=== PATIENT | male | born 1955 | race Caucasian/White ===

== ENCOUNTER 2018-05-23 06:48 | Day surgery (SDC) | payer BC ==
[2018-05-23] MEDS ORDERED: NA CHLORIDE 0.9% 500 ML ONE (07:36)
[2018-05-23] MEDS ORDERED: LIDOCAINE 2% MPF 5 ML VIAL ONE (07:41)
[2018-05-23] MEDS ORDERED: BUPIVACAINE 0.25% PF 10 ML VIAL ONE (07:41)
[2018-05-23] MEDS ORDERED: TETRACAINE HCL 0.5% 2ML OPTH ONE (07:41)
[2018-05-23] MEDS ORDERED: LIDOCAINE HCL/PF 3.5% OPTH GEL ONE (07:44)
[2018-05-23] MEDS: CYCLOPENTOLATE 1% OPTH 2 ML ONE ×3 (08:05→08:15)
[2018-05-23] MEDS: PHENYLEPHRINE 10% OPTH 5ML ONE ×2 (08:05→08:10)
[2018-05-23] MEDS ORDERED: DUOVISC 1 KIT OPTH ONE (08:36)
[2018-05-23] MEDS ORDERED: NS 0.9% VIAL 10 ML ONE (08:36)
[2018-05-23] MEDS ORDERED: BALANCED SALT IRRIG PLAIN 500 ML BTL IRR ONE (08:36)
[2018-05-23] MEDS ORDERED: EPINEPHRINE/PF 1 MG/ML AMP ONE (08:36)
[2018-05-23] MEDS ORDERED: MOXIFLOXACIN HCL 10 DROPS/ML **OR USE OPTH ONE (08:37)
[2018-05-23] MEDS ORDERED: MIDAZOLAM HCL 2 MG/2 ML INJ ONE (09:15)
[2018-05-23] MEDS ORDERED: LIDOCAINE 1% MPF 2 ML AMPULE ONE (09:18)
--- NOTE | 2018-05-23 10:08 | P.BOP ---
Preoperative diagnosis: Nuclear sclerotic and cortical cataract OS Postoperative diagnosis: Same Primary procedure: Phacoemulsification with IOL OS Estimated blood loss: None Anesthesia: Local (Topical with anesthesia for cataract surgery) Complications: None Implants: ZCB00 +17.0 Transferred to: Other (Day surgery) Condition: Good
[2018-05-23 10:14] VITALS: BP 144/66; TEMP 98.1; O2SAT 98
--- NOTE | 2018-05-23 21:26 | OP ---
Surgeon: Yenifer Conner MD Anesthesiologist: Steve Wetzel CRNA, and Chilo Knowles M.D. Preoperative Diagnosis: Nuclear sclerotic and cortical cataract, OS (left eye). Operation Performed: Phacoemulsification with intraocular lens implant, left eye. Anesthesia: Per cataract surgery. Complications: None. Description Of Procedure: In the operating room the patient was prepped and draped in the usual ster ile fashion for ophthalmic surgery. A lid speculum was placed in the left eye. Two paracentesis sit es were made superiorly and inferiorly in the limbal cornea. Viscoat was placed in the anterior ivan pasquale and a crescent blade was used to make a corneal groove and tunnel, and a keratome was used to ent er the anterior chamber. Provisc was placed in the anterior chamber and a 360 degree capsulotomy was performed with a cystitome. The lens was hydrodissected with BSS and rotated freely. The lens was removed with a stop and chop technique. A 4.41 phaco CDE was used to remove the lens. Residual sin ex was removed with the irrigation and aspiration. Provisc was placed in the capsular bag. A ZCB00 + 17.0 lens was placed in the capsular bag without complications. Irrigation and aspiration was used to remove residual viscoelastic. The paracentesis sites were hydrated with BSS. The wound and para centesis sites were inspected and found to be watertight. Vigamox 0.07 cc was placed intracamerally at the end of the procedure. The eye was irrigated with balanced salt solution. The eye was patched with a soft cotton patch and [place] metal shield. The patient was returned to day surgery in good condition. Comments: Akten was placed in the eye in Day Surgery and irrigated out of the eye with BSS in the OR . Preservative-free 1% lidocaine was placed in the anterior chamber prior to Viscoat. Discharge Instructions: Mr. Santiago is discharged to home in good condition and is to follow up with Dr. Conner in the morning. NADIA/JERMAINE Voice ID: [id number] Report ID: [id number]
== END 2018-05-23 10:37 | disposition home or self-care (01) ==
LOC: OR 06:48
PROVIDERS: ATTEND Ophthalmology Retina Specialist
PROC: 08RK3JZ Replacement of Left Lens with Synthetic Substitute, Percutaneous Approach (ICD-10-PCS; principal; 2018-05-23 11:30)
DX: H25.12 Age-related nuclear cataract, left eye (principal); H25.012 Cortical age-related cataract, left eye; I10 Essential (primary) hypertension; I25.10 Atherosclerotic heart disease of native coronary artery without angina pectoris; E78.00 Pure hypercholesterolemia, unspecified; Z79.82 Long term (current) use of aspirin; Z95.1 Presence of aortocoronary bypass graft; Z83.518 Family history of other specified eye disorder; Z82.49 Family history of ischemic heart disease and other diseases of the circulatory system
CPT/HCPCS: J0171; J2001; J2250